=== PATIENT | female | born 1985 | race African-American/Black ===

== ENCOUNTER → 2016-04-18 | Day surgery (SDC) | payer BC ==
[~2016-04-18] VITALS: Ht 152.4 cm; Wt 47.6 kg
[~2016-04-18] MED LIST: ACETAMINOPHEN 1000 MG/100 ML VIAL IV ONE; INSULIN HUMAN REGULAR 1,000 UNITS/10 ML VIAL SQ PRN; LACTATED RINGER'S 1000 ML IV SCH; METOCLOPRAMIDE HCL 10 MG/2 ML VIAL IVS PRN; METOPROLOL TARTRATE 25 MG TAB PO PRN; ONDANSETRON HCL 4 MG/2 ML VIAL IV PRN; PREN29TA PO; Post-op Orders (for Pharmacy) MISC XX ONE; SODIUM CHLORID 0.9% 500 ML IV SCH; SODIUM CHLORIDE 0.9% FLUSH 5 ML FLUSH IVF PRN; SODIUM CHLORIDE 0.9% FLUSH 5 ML FLUSH IVF SCH; ceFAZolin 2 GM PREMIX 50 ML IV SCH; ceFAZolin INJ 1,000 MG VIAL ONE; ePHEDrine/NS 25 MG/5 ML SYR IV ONE; oxyCODONE/ACETAMINOPHEN 5 MG/325 MG TAB PO PRN
[2016-04-18 09:09] VITALS: BP 115/70; PULSE 86; RESP 20; TEMP 98.2; O2SAT 100
[2016-04-18 09:44] LABS: AUTOMATED NEUTROPHIL # 4.2 TH/MM3 (1.8-7.7); BASOPHIL % 0.4 % (0.0-2.0); EOSINOPHIL % 0.7 % (0.0-4.0); HEMATOCRIT 31.3 % (35.0-46.0); HEMO FLAGS DIFF FINAL; MEAN CELL VOLUME 80.2 FL (80.0-100.0); MEAN CORPUSCULAR HEMOGLOBIN 27.6 PG (27.0-34.0); MEAN CORPUSCULAR HGB CONC 34.4 % (32.0-36.0); MONO % 7.3 % (0.0-8.0); NEUT % 73.6 % (16.0-70.0); PLATELET COUNT 146 TH/MM3 (150-450); RED BLOOD COUNT 3.91 MIL/MM3 (4.00-5.30); RED CELL DISTRIBUTION WIDTH 14.3 % (11.6-17.2); WHITE BLOOD COUNT 5.7 TH/MM3 (4.0-11.0)
--- NOTE | 2016-04-18 09:54 | MH ---
cc: DOUGLAS SANDERS DATE OF ADMISSION: 04/18/2016 HISTORY OF PRESENT ILLNESS The patient is a 30-year-old 3, para 0-1-1-1 who presents at 14 weeks gestation with an GABINO of 10/16/2016. The patient has a that is history complicated by one first trimester miscarriage and with her second she had incompetent cervix at 22 weeks, premature rupture of membranes at 23 weeks and at 25 weeks the patient had cord prolapse that led to emergency . The patient presents today for prophylactic cerclage given her history of incompetent cervix with the past pregnancies. PAST MEDICAL HISTORY Negative. PAST SURGICAL HISTORY Significant for - 1. Emergency . 2. Breast augmentation. OB HISTORY As previously dictated. One miscarriage, one 25-week delivery. 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 Menstrual cycles are regular between pregnancies. SOCIAL HISTORY Negative for alcohol, tobacco or street drugs. SOCIAL HISTORY The patient is and works as an accounting practice manager. ALLERGIES None. FAMILY HISTORY Her mother with high cholesterol. PHYSICAL EXAMINATION VITAL SIGNS: She is afebrile. Her vitals are stable. Her blood pressure is 104/62, her weight is 104. GENERAL: She is in no acute distress. HEART: Regular rate and rhythm. LUNGS: Clear to auscultation bilaterally. ABDOMEN: Gravid, soft, non-tender, non-distended. LOWER EXTREMITIES: Nontender, nonedematous. IMPRESSION History of cervical incompetence. PLAN Ribeiro cervical cerclage. The risks, benefits and alternatives have been reviewed. The patient does desire to proceed. Douglas Sanders MD TEG/SSB /10:32 PM /9:18 AM KARTHIK
--- NOTE | 2016-04-18 11:36 | PD.OP ---
Operative Report Date of Surgery: Apr 18, 2016 Preoperative Diagnosis: (1) Cervical incompetence Postoperative Diagnosis: (1) Cervical incompetence Procedure: Keenan cervical cerclage Anesthesia: spinal Surgeon: Douglas Pennington MD Cardiac Care Nurse(s): none Operation and Findings: After informed consent was obtained she was taken to the operating room, given spinal anesthesia and then placed in the dorsolithotomy position with her legs in the candy cane stirrups. A weighted speculum was inserted in to the vagina. The anterior lip of the cervix was grasped using a ring forcep. The 5mm mersilene tape suture was started at 12 o clock and then passed to 4 o clock, then to 8 o clock and finally back to 12 and tied. The suture was tagged with prolene. All instruments were removed from the patient's vagina. She was awakened and extubated and taken to the recovery room in stable condition. Douglas Pennington MD Apr 18, 2016 11:36
[2016-04-18 14:35] VITALS: BP 113/69; PULSE 95; RESP 16; TEMP 98.9; O2SAT 100
== END | disposition home or self-care (01) ==
LOC: HSDC 08:16
PROVIDERS: ATTEND Obstetrics & Gynecology
DX: O34.32 Maternal care for cervical incompetence, second trimester (principal); Z3A.14 14 weeks gestation of pregnancy
CPT/HCPCS: 00948; 59320; 85025; 86850; 86900; 86901; J0690; J2405; J7120; J0131; J3010

== ENCOUNTER → 2016-05-03 | Outpatient (CLI) | payer BC ==
[~2016-05-03] MED LIST changes: -ACETAMINOPHEN 1000 MG/100 ML VIAL IV ONE; -INSULIN HUMAN REGULAR 1,000 UNITS/10 ML VIAL SQ PRN; -LACTATED RINGER'S 1000 ML IV SCH; -METOCLOPRAMIDE HCL 10 MG/2 ML VIAL IVS PRN; -METOPROLOL TARTRATE 25 MG TAB PO PRN; -ONDANSETRON HCL 4 MG/2 ML VIAL IV PRN; -Post-op Orders (for Pharmacy) MISC XX ONE; -SODIUM CHLORID 0.9% 500 ML IV SCH; -SODIUM CHLORIDE 0.9% FLUSH 5 ML FLUSH IVF PRN; -SODIUM CHLORIDE 0.9% FLUSH 5 ML FLUSH IVF SCH; -ceFAZolin 2 GM PREMIX 50 ML IV SCH; -ceFAZolin INJ 1,000 MG VIAL ONE; -ePHEDrine/NS 25 MG/5 ML SYR IV ONE; -oxyCODONE/ACETAMINOPHEN 5 MG/325 MG TAB PO PRN
== END ==
LOC: HPND 08:14
PROVIDERS: ATTEND Obstetrics & Gynecology
DX: O34.32 Maternal care for cervical incompetence, second trimester (principal); N88.3 Incompetence of cervix uteri; Z87.51 Personal history of pre-term labor
CPT/HCPCS: 76805; 76817

== ENCOUNTER → 2016-05-16 | Outpatient (CLI) | payer BC | LOC: HPND 08:00 | PROVIDERS: ATTEND Obstetrics & Gynecology | DX: O34.32 Maternal care for cervical incompetence, second trimester (principal); Z87.51 Personal history of pre-term labor; Z3A.00 Weeks of gestation of pregnancy not specified | CPT/HCPCS: 76815; 76817 ==

== ENCOUNTER 2016-10-07 11:30 | Inpatient (IN) | payer BC, OTHER ==
[~2016-10-07] VITALS: Ht 152.4 cm; Wt 60.3 kg
--- NOTE | 2016-10-09 19:01 | MH ---
cc: GONSALO SANDERS DATE OF ADMISSION: 10/10/2016 HISTORY OF PRESENT ILLNESS: The patient is a 30-year-old 3, para 0-1-1-1 who presents at 39+ weeks gestation for an elective repeat section. This has been complicated by a history of pre-term labor and pre-term rupture of membranes with her prior and thus the patient has received Richey injections from approximately 16 weeks until approximately 36 weeks and the patient also had a cerclage placed at approximately 14 weeks gestation. PAST MEDICAL HISTORY: Her past medical history is negative. PAST SURGICAL HISTORY: Her past surgical history is significant for: 1. section. 2. Gallaway teeth extraction. 3. Breast augmentation. OBSTETRICAL HISTORY: She has had one 25-week delivery by secondary to cord prolapse. She has also had one first trimester miscarriage but did not require a D&C. GYNECOLOGIC HISTORY: No history of STDs or abnormal Pap smears. SOCIAL HISTORY: Social history is negative for cigarettes, alcohol or street drugs. The patient is and works as an accounting recruiter. FAMILY HISTORY: Her mother has high cholesterol. PHYSICAL EXAMINATION: VITAL SIGNS: She is afebrile. Her blood pressure is 112/60. GENERAL: In general, she is in no acute distress. HEART: Regular rate and rhythm. LUNGS: Clear to auscultation bilaterally. ABDOMEN: The abdomen is gravid and nontender. LOWER EXTREMITIES: Nontender, nonedematous. IMPRESSION: 1. at 39+ weeks gestation. 2. History of prior section. PLAN: Plan is for a repeat low transverse delivery. The risks, benefits, and alternatives have been reviewed and the patient does desire to proceed. MD FELIPE Roque/[facility] /6:10 PM /6:52 PM
[2016-10-10] VITALS (12 sets, daily range): BP systolic 96–120; BP diastolic 51–77; PULSE 66–97; RESP 18–20; TEMP 97.5–98.8; O2SAT 97–100
[2016-10-10] MEDS ORDERED: MORPHINE SULFATE PF 5 MG/10 ML VIAL ONE (09:16)
[2016-10-10] MEDS ORDERED: ONDANSETRON HCL 4 MG/2 ML VIAL ONE (09:17)
[2016-10-10 09:25] LABS: AUTOMATED NEUTROPHIL # 3.6 TH/MM3 (1.8-7.7); BASOPHIL % 0.4 % (0.0-2.0); EOSINOPHIL % 0.9 % (0.0-4.0); HEMATOCRIT 32.6 % (35.0-46.0); HEMO FLAGS DIFF FINAL; LYMPH % 20.7 % (9.0-44.0); MEAN CORPUSCULAR HEMOGLOBIN 27.5 PG (27.0-34.0); MEAN CORPUSCULAR HGB CONC 33.9 % (32.0-36.0); MONO % 7.6 % (0.0-8.0); NEUT % 70.4 % (16.0-70.0); PLATELET COUNT 138 TH/MM3 (150-450); RED BLOOD COUNT 4.03 MIL/MM3 (4.00-5.30); RED CELL DISTRIBUTION WIDTH 15.1 % (11.6-17.2)
[2016-10-10 09:36] LABS: BACTERIA, URINE RARE /hpf; BLOOD, URINE NEG (NEG); GLUCOSE,URINE NEG (NEG); KETONE, URINE NEG (NEG); NITRITE,URINE NEG (NEG); SQUAMOUS EPITHELIAL CELL URINE 12 /hpf (0-5); URINE COLOR YELLOW (YELLW/STRAW)
[2016-10-10 09:37] LABS: COMMENT (UR) CULT NOT INDICATED; CULTURE IF INDICATED CULT NOT INDICATED
[2016-10-10] MEDS ORDERED: CITRIC ACID-SODIUM CITRATE LIQ 30 ML UDC ONE (09:51)
[2016-10-10] MEDS: LACTATED RINGER'S 1000 ML IV SCH ×2 (09:53→16:25)
[2016-10-10] MEDS ORDERED: ceFAZolin 2 GM PREMIX 50 ML IV SCH (10:00)
[2016-10-10] MEDS ORDERED: CITRIC ACID-SODIUM CITRATE LIQ 30 ML UDC PO SCH (10:00)
[2016-10-10] MEDS ORDERED: LACTATED RINGER'S 1000 ML IV ONE (10:00)
[2016-10-10] MEDS ORDERED: ACETAMINOPHEN 1000 MG/100 ML VIAL IV ONE ×2 (11:30→11:49)
[2016-10-10] MEDS ORDERED: OXYTOCIN 10 UNIT/ML AMP XX PRN (11:30)
[2016-10-10] MEDS ORDERED: oxyCODONE/ACETAMINOPHEN 5 MG/325 MG TAB PO PRN (11:30)
[2016-10-10] MEDS ORDERED: KETOROLAC TROMETHAMINE 60 MG/2 ML (IM) VIAL IM PRN (11:30)
[2016-10-10] MEDS ORDERED: OXYTOCIN 30 UNITS-500ML PREMIX 500 ML IV ONE (11:30)
[2016-10-10] MEDS ORDERED: SIMETHICONE 80 MG CHEWABLE TAB PO PRN (11:30)
[2016-10-10] MEDS ORDERED: OXYTOCIN 10 UNIT/ML AMP XX ONE (11:30)
[2016-10-10] MEDS ORDERED: ONDANSETRON HCL 4 MG/2 ML VIAL IV PUSH PRN (11:30)
[2016-10-10] MEDS ORDERED: SODIUM CHLORIDE 0.9% FLUSH 10 ML FLUSH IV FLUSH PRN (11:30)
[2016-10-10] MEDS ORDERED: OXYTOCIN 30 UNITS-500ML PREMIX 500 ML ONE (11:49)
--- NOTE | 2016-10-10 15:05 | PD.CONS ---
HPI Service CV Consult Requested By Dr. Pennington Reason for Consult a-fib Primary Care Physician No Primary Care Physician History of Present Illness Here s/p who was paced in heart monitor post which showed atrial fibrillation. She has no history of this. She has no thyroid disease. She does no smoke. She does not have caffeine in her diet. She denies chest pain , shortness of breath or palpitations (Micky Back) Review of Systems Consitutional: DENIES: Fatigue, Fever, Chills, Weight gain, Weight loss Eyes: DENIES: Amaurosis Fugax, Change in vision HEENT: DENIES: Lightheadedness, Change in hearing Respiratory: DENIES: See HPI, Cough, Snoring, Shortness of breath, Wheezing, Sputum production Cardiovascular: DENIES: See HPI, Chest pain, Palpitations, Syncope, Tachycardia Gastrointestinal: DENIES: Nausea, Vomiting, Change in bowel habits, Reflux, Bloody stools, Melena Genitourinary: DENIES: Urinary incontinence, Difficulty voiding Integumentary: DENIES: Rash Neurologic: DENIES: Tingling or numbness, Memory problems, Poor Balance, Stroke symptoms Musculoskeletal: DENIES: Joint pain, Muscle pain, Limited range of motion, Back pain Psychiatric: DENIES: Anxiety, Depression, Sleep disturbances Hematologic: DENIES: Bruising tendencies, Bleeding tendencies Endocrine: DENIES: Weight gain, Weight loss, Thyroid disease (Micky Back ) Past Family Social History Allergies: Coded Allergies: No Known Allergies (Unverified , 10/10/16) Past Medical History s/p Reported Medications Reported Meds & Active Scripts Active Reported Plus Iron 29-1 mg ( Vit-Iron Carbonyl) 1 Tab Tab 1 Tab PO DAILY Active Ordered Medications Current Medications Medications (Trade) Dose Ordered Sig/Howard Route Start Time Stop Time Status Last Admin Lactated Ringer's 1,000 ml @ 150 mls/hr Q6H40M IV 10/10/16 10:30 10/10/16 09:53 Lactated Ringer's 1,000 ml @ 100 mls/hr Q10H IV 10/10/16 16:18 10/11/16 12:17 (Pitocin 30 Units-NS 500 ml Premix) 500 ml @ 100 mls/hr ONCE ONCE IV 10/10/16 11:30 10/10/16 16:29 10/10/16 11:58 (NS Flush) 2 ml BID IV FLUSH 10/10/16 21:00 (NS Flush) 2 ml UNSCH PRN IV FLUSH 10/10/16 11:30 (Mylicon Chew) 80 mg QID PRN PO 10/10/16 11:30 (Motrin) 600 mg Q6H PRN PO 10/10/16 11:30 (Toradol Inj) 30 mg Q6H PRN IM 10/10/16 11:30 10/11/16 11:29 (Percocet 5-325 Mg) 1 tab Q4H PRN PO 10/10/16 11:30 Oxycodone/ Acetaminophen 2 tab 2 tab Q4H PRN PO 10/10/16 11:30 (Ancef Inj/NS Inj) 100 ml @ 200 mls/hr Q8H IV 10/10/16 18:00 10/11/16 02:29 (Krystle-Colace) 2 tab Q12H PRN PO 10/10/16 11:30 (Ambien) 5 mg HS PRN PO 10/10/16 21:00 (M-M-R Ii Inj) 0.5 ml ONCE ONCE SQ 10/11/16 16:00 10/11/16 16:01 (Boostrix Inj) 0.5 ml ONCE ONCE IM 10/11/16 16:00 10/11/16 16:01 (Zofran Inj) 4 mg Q6H PRN IV PUSH 10/10/16 11:30 Family History noncontributory Social History denies smoking, alcohol, or substance abuse (Micky Back) Physical Exam Vital Signs Vital Signs Date Time Temp Pulse Resp B/P Pulse Ox O2 Delivery O2 Flow Rate FiO2 10/10/16 12:46 97.6 74 18 10/10/16 12:46 112/77 10/10/16 12:15 83 119/63 10/10/16 12:15 18 99 10/10/16 12:05 97.5 10/10/16 12:00 89 18 118/55 98 10/10/16 11:42 96/51 10/10/16 11:39 97 10/10/16 11:39 87 18 10/10/16 11:31 100 10/10/16 11:22 97.8 10/10/16 11:22 97 18 109/57 Physical Exam GENERAL: Well-nourished, well-developed patient in no apparent distress. NECK: No JVD. No carotid bruit. CARDIOVASCULAR: IR IR. S1/S2 no murmur, rub, or gallop. RESPIRATORY: No accessory muscle use. Clear to auscultation. Breath sounds equal bilaterally. GASTROINTESTINAL: Abdomen soft, non-tender, nondistended. MUSCULOSKELETAL: Extremities without clubbing, cyanosis, or edema. Laboratory Laboratory Tests Test 10/10/16 10/10/16 10/10/16 08:30 08:40 08:42 Urine Color YELLOW Urine Turbidity HAZY Urine pH 6.0 Urine Specific [place] 1.012 Urine Protein NEG Urine Glucose (UA) NEG Urine Ketones NEG Urine Occult Blood NEG Urine Nitrite NEG Urine Bilirubin NEG Urine Urobilinogen LESS THAN 2.0 Urine Leukocyte Esterase LARGE Urine RBC 1 Urine WBC 6 Urine Squamous Epithelial 12 Cells Urine Bacteria RARE Microscopic Urinalysis Comment CULT NOT INDICATED Blood Type AB POSITIVE Antibody Screen NEGATIVE White Blood Count 5.0 Red Blood Count 4.03 Hemoglobin 11.0 Hematocrit 32.6 Mean Corpuscular Volume 81.0 Mean Corpuscular Hemoglobin 27.5 Mean Corpuscular Hemoglobin 33.9 Concent Red Cell Distribution Width 15.1 Platelet Count 138 Mean Platelet Volume 7.7 Neutrophils (%) (Auto) 70.4 Lymphocytes (%) (Auto) 20.7 Monocytes (%) (Auto) 7.6 Eosinophils (%) (Auto) 0.9 Basophils (%) (Auto) 0.4 Neutrophils # (Auto) 3.6 Lymphocytes # (Auto) 1.0 Monocytes # (Auto) 0.4 Eosinophils # (Auto) 0.0 Basophils # (Auto) 0.0 CBC Comment DIFF FINAL Differential Comment (Micky Back) Result Diagram: 10/10/16 0842 Assessment and Plan Problem List: (1) A-fib Assessment and Plan A-fib - get 2D echo, check TSH, and start telemetry. Further recommendations will depend on the echo results (Micky Back) Assessment and Plan -------- regular rhythm now i suspect she spontaneously converted. likely afib due to increased adrenergic tone related to delivery. FU 2d echo FU tele FU TSH if no further afib, no cardiac meds considering she prefers to try to breast feed. thanks (Sriram Lam MD) Micky Back Oct 10, 2016 15:05 Sriram Lam MD Oct 10, 2016 15:13
[2016-10-10] MEDS: LACTATED RINGER'S 1000 ML INJ 1,000 ML IV SCH ×2 (16:18→23:30)
--- NOTE | 2016-10-10 16:22 | EKG ---
Date Performed: 10/10/2016 Time Performed: 11:50:33 PTAGE: 30 years EKG: ATRIAL FIBRILLATION POSSIBLE RIGHT VENTRICULAR CONDUCTION DELAY VOLTAGE CRITERIA FOR LVH AB NORMAL ECG NO PREVIOUS TRACING DOCTOR: Lambert Muro Interpretating Date/Time 10/10/2016 16:19:47
[2016-10-10] MEDS ORDERED: ZOLPIDEM TARTRATE 5 MG TAB PO PRN (21:00)
[2016-10-10] MEDS ORDERED: OXYTOCIN 30 UNITS-500ML PREMIX 500 ML IV PRN (21:30)
[2016-10-10] MEDS: IBUPROFEN 600 MG TAB PO PRN (22:29)
[2016-10-10] MEDS: oxyCODONE/ACETAMINOPHEN 5 MG/325 MG TAB PO PRN (22:30)
[2016-10-11] MEDS: oxyCODONE/ACETAMINOPHEN 5 MG/325 MG TAB PO PRN ×7 (00:22→23:16)
[2016-10-11 04:00] VITALS: BP 103/66; PULSE 77; RESP 18; TEMP 98.4
[2016-10-11] MEDS: IBUPROFEN 600 MG TAB PO PRN ×3 (04:28→18:21)
[2016-10-11 06:48] LABS: AUTOMATED NEUTROPHIL # 3.6 TH/MM3 (1.8-7.7); BASOPHIL % 0.2 % (0.0-2.0); EOSINOPHIL % 0.5 % (0.0-4.0); HEMATOCRIT 22.4 % (35.0-46.0); HEMO FLAGS DIFF FINAL; LYMPH % 14.3 % (9.0-44.0); LYMPHOCYTE # 0.7 TH/MM3 (1.0-4.8); MEAN CELL VOLUME 81.1 FL (80.0-100.0); MEAN CORPUSCULAR HEMOGLOBIN 27.3 PG (27.0-34.0); MEAN CORPUSCULAR HGB CONC 33.7 % (32.0-36.0); MONO % 8.7 % (0.0-8.0); NEUT % 76.3 % (16.0-70.0); PLATELET COUNT 107 TH/MM3 (150-450); RED BLOOD COUNT 2.76 MIL/MM3 (4.00-5.30); RED CELL DISTRIBUTION WIDTH 14.8 % (11.6-17.2); WHITE BLOOD COUNT 4.8 TH/MM3 (4.0-11.0)
[2016-10-11 08:20] VITALS: BP 104/69; PULSE 73; RESP 16; TEMP 98.2
--- NOTE | 2016-10-11 11:23 | PD.CARD.PN ---
Subjective Subjective Remarks no events Objective Medications Active Medications Acetaminophen (Ofirmev Inj) 1,000 mg ONCE ONCE IV Last administered on 11:55; Admin Dose 1,000 MG; Start 10/10/16 at 11:30; Stop 10/10/16 at 11:33; Status DC Acetaminophen (Ofirmev Inj) 1,000 mg STK-MED ONCE IV; Start 10/10/16 at 11:49; Stop 10/10/16 at 11:50; Status DC Cefazolin Sodium/ Sodium Chloride (Ancef Inj/NS Inj) 100 ml @ 200 mls/hr Q8H IV Last administered on 10/11/16 02:00; Admin Dose 200 MLS/HR; Start 10/10/16 at 18:00; Stop 10/11/16 at 02:29; Status DC Diphtheria/ Tetanus/Acell Pertussis (Boostrix Inj) 0.5 ml ONCE ONCE IM; Start at 16:00; Stop 10/11/16 at 16:01 Ibuprofen (Motrin) 600 mg Q6H PRN PO Last administered on 10/11/16 04:28; Admin Dose 600 MG; Start 10/10/16 at 11:30 Ketorolac Tromethamine (Toradol Inj) 30 mg Q6H PRN IM Last administered on 16:19; Admin Dose 30 MG; Start 10/10/16 at 11:30; Stop 10/11/16 at 11:29 Lactated Ringer's 1,000 ml @ 100 mls/hr Q10H IV Last administered on 10/10/16 23:30; Admin Dose 100 MLS/HR; Start 10/10/16 at 16:18; Stop 10/11/16 at 12:17 Measles/Mumps/ Rubella Vaccine Live (M-M-R Ii Inj) 0.5 ml ONCE ONCE SQ; Start at 16:00; Stop 10/11/16 at 16:01 Ondansetron HCl 4 mg 4 mg Q6H PRN IV PUSH Last administered on 10/10/16 16:18; Admin Dose 4 MG; Start 10/10/16 at 11:30 Oxycodone/ Acetaminophen (Percocet 5-325 Mg) 1 tab Q4H PRN PO Last administered on 10/11/16 06:54; Admin Dose 1 TAB; Start 10/10/16 at 11:30 Oxycodone/ Acetaminophen 2 tab 2 tab Q4H PRN PO; Start 10/10/16 at 11:30 Oxytocin (Pitocin 30 Units-NS 500 ml Premix) 500 ml @ 100 mls/hr ONCE ONCE IV Last administered on 10/10/16 11:58; Admin Dose 100 MLS/HR; Start 10/10/16 at 11: 30; Stop 10/10/16 at 16:29; Status DC Oxytocin (Pitocin 30 Units-NS 500 ml Premix) 500 ml @ As Directed STK-MED ONCE .ROUTE; Start 10/10/16 at 11:49; Stop 10/10/16 at 11:50; Status DC Oxytocin 20 units 20 units ONCE ONCE XX; Start 10/10/16 at 11:30; Stop 10/10/16 at 11:32; Status DC Senna/Docusate Sodium (Krystle-Colace) 2 tab Q12H PRN PO; Start 10/10/16 at 11:30 Simethicone (Mylicon Chew) 80 mg QID PRN PO; Start 10/10/16 at 11:30 Sodium Chloride (NS Flush) 2 ml BID IV FLUSH; Start 10/10/16 at 21:00 Sodium Chloride (NS Flush) 2 ml UNSCH PRN IV FLUSH; Start 10/10/16 at 11:30 Zolpidem Tartrate (Ambien) 5 mg HS PRN PO; Start 10/10/16 at 21:00 Vital Signs / I&O Vital Signs Date Time Temp Pulse Resp B/P Pulse Ox O2 Delivery O2 Flow Rate FiO2 10/11/16 08:20 98.2 73 16 104/69 10/11/16 04:00 98.4 77 18 10/11/16 04:00 103/66 10/10/16 23:59 98.8 71 18 119/75 10/10/16 22:30 18 10/10/16 20:15 76 20 113/72 10/10/16 20:15 97.9 10/10/16 16:31 66 18 120/75 10/10/16 16:31 97.6 10/10/16 12:46 97.6 74 18 10/10/16 12:46 112/77 10/10/16 12:15 83 119/63 10/10/16 12:15 18 99 10/10/16 12:05 97.5 10/10/16 12:00 89 18 118/55 98 10/10/16 11:42 96/51 10/10/16 11:39 97 10/10/16 11:39 87 18 10/10/16 11:31 100 Physical Exam GENERAL: SKIN: Warm and dry. HEAD: Normocephalic. EYES: No scleral icterus. No injection or drainage. NECK: Supple, trachea midline. No JVD or lymphadenopathy. CARDIOVASCULAR: Regular rate and rhythm without murmurs, gallops, or rubs. RESPIRATORY: Breath sounds equal bilaterally. No accessory muscle use. GASTROINTESTINAL: Abdomen soft, non-tender, nondistended. MUSCULOSKELETAL: No cyanosis, or edema. BACK: Nontender without obvious deformity. No CVA tenderness. Laboratory Laboratory Tests Test 10/10/16 10/11/16 16:40 06:19 Thyroid Stimulating Hormone 1.940 uIU/ML 3rd Gen White Blood Count 4.8 TH/MM3 Red Blood Count 2.76 MIL/MM3 Hemoglobin 7.5 GM/DL Hematocrit 22.4 % Mean Corpuscular Volume 81.1 FL Mean Corpuscular Hemoglobin 27.3 PG Mean Corpuscular Hemoglobin 33.7 % Concent Red Cell Distribution Width 14.8 % Platelet Count 107 TH/MM3 Mean Platelet Volume 7.6 FL Neutrophils (%) (Auto) 76.3 % Lymphocytes (%) (Auto) 14.3 % Monocytes (%) (Auto) 8.7 % Eosinophils (%) (Auto) 0.5 % Basophils (%) (Auto) 0.2 % Neutrophils # (Auto) 3.6 TH/MM3 Lymphocytes # (Auto) 0.7 TH/MM3 Monocytes # (Auto) 0.4 TH/MM3 Eosinophils # (Auto) 0.0 TH/MM3 Basophils # (Auto) 0.0 TH/MM3 CBC Comment DIFF FINAL Differential Comment Assessment and Plan Problem List: (1) A-fib Assessment and Plan -------- lone afib - now NSR. cont tele echo done. will read raven. if echo unremarkable, then no further workup and can go home tomorrow and fu with PCP thanks Sriram Lam MD Oct 11, 2016 11:23
[2016-10-11] MEDS: DOCUSATE SODIUM 50 MG/SENNA 8.6 MG TAB PO PRN ×2 (11:24→23:16)
[2016-10-11 11:25] VITALS: BP 109/72; PULSE 74; RESP 18; TEMP 98.1
--- NOTE | 2016-10-11 12:40 | HHI.OB ---
Subjective Post Operative Day: 1 Remarks pain controlled, mod lochia, lucero po, +void/flatus, denies SOB/CP Objective Vitals/I&O Vital Signs Date Time Temp Pulse Resp B/P Pulse Ox O2 Delivery O2 Flow Rate FiO2 10/11/16 08:20 98.2 73 16 104/69 10/11/16 04:00 98.4 77 18 10/11/16 04:00 103/66 10/10/16 23:59 98.8 71 18 119/75 10/10/16 22:30 18 10/10/16 20:15 76 20 113/72 10/10/16 20:15 97.9 10/10/16 16:31 66 18 120/75 10/10/16 16:31 97.6 10/10/16 12:46 97.6 74 18 10/10/16 12:46 112/77 Result Diagram: 10/11/16 0619 Objective Remarks GENERAL: Well-nourished, well-developed patient. CARDIOVASCULAR: Regular rate and rhythm without murmurs, gallops, or rubs. RESPIRATORY: Breath sounds equal bilaterally. No accessory muscle use. ABDOMEN/GI: Abdomen soft, non-tender, bowel sounds present. Incision: Clean, dry and intact. Fundus: Firm, non-tender at umbilicus. GENITOURINARY: Light to moderate bleeding. EXTREMITIES: No cyanosis or edema, non-tender, without signs of DVT. Medications and IVs Current Medications Medications (Trade) Dose Ordered Sig/Hoawrd Route Start Time Stop Time Status Last Admin (Lr 1000 ml Inj) 1,000 ml @ 150 mls/hr Q6H40M IV 10/10/16 10:30 10/10/16 09:53 (NS Flush) 2 ml BID IV FLUSH 10/10/16 21:00 (NS Flush) 2 ml UNSCH PRN IV FLUSH 10/10/16 11:30 (Mylicon Chew) 80 mg QID PRN PO 10/10/16 11:30 (Motrin) 600 mg Q6H PRN PO 10/10/16 11:30 10/11/16 11:25 (Percocet 5-325 Mg) 1 tab Q4H PRN PO 10/10/16 11:30 10/11/16 11:24 (Percocet 5-325 Mg) 2 tab Q4H PRN PO 10/10/16 11:30 (Krystle-Colace) 2 tab Q12H PRN PO 10/10/16 11:30 10/11/16 11:24 (Ambien) 5 mg HS PRN PO 10/10/16 21:00 (M-M-R Ii Inj) 0.5 ml ONCE ONCE SQ 10/11/16 16:00 10/11/16 16:01 (Boostrix Inj) 0.5 ml ONCE ONCE IM 10/11/16 16:00 10/11/16 16:01 (Zofran Inj) 4 mg Q6H PRN IV PUSH 10/10/16 11:30 10/10/16 16:18 Assessment/Plan Problem List: (1) delivery, delivered, current hospitalization Plan: d/c dressing routine po care (2) A-fib Plan: appreciate cardio consult await echo results now RANDYR. Douglas Pennington MD Oct 11, 2016 12:40
--- NOTE | 2016-10-11 12:43 | ECHRPT ---
Indication: ATRIAL FIB AND FLUTTER CONCLUSIONS BP: 103 / 66 HR: 77 Rhythm: Sinus MEASUREMENTS (Male / Female) Normal Values Technical Quality:Good 2D ECHO LV Diastolic Diameter PLAX 5.0 cm 4.2 - 5.9 / 3.9 - 5.3 cm LV Systolic Diameter PLAX 3.4 cm IVS Diastolic Thickness 0.7 cm 0.6 - 1.0 / 0.6 - 0.9 cm LVPW Diastolic Thickness 0.7 cm 0.6 - 1.0 / 0.6 - 0.9 cm LV Relative Wall Thickness 0.3 LVOT Diameter 1.9 cm Aortic Root Diameter 2.6 cm LA Systolic Diameter LX 3.0 cm 3.0 - 4.0 / 2.7 - 3.8 cm M-MODE AV Cusp Separation MM 1.8 cm DOPPLER AV Peak Velocity 163.0 cm/s AV Peak Gradient 10.6 mmHg AV Mean Gradient 6.0 mmHg AV Velocity Time Integral 30.5 cm LVOT Peak Velocity 141.0 cm/s LVOT Peak Gradient 8.0 mmHg LVOT Velocity Time Integral 26.3 cm LVOT Cardiac Index 3557.7 cm/minm AV Area Cont Eq vti 2.4 cm AV Area Cont Eq pk 2.5 cm Mitral E Point Velocity 86.6 cm/s Mitral A Point Velocity 81.2 cm/s Mitral E to A Ratio 1.1 LV E' Lateral Velocity 20.8 cm/s Mitral E to LV E' Lateral Ratio 4.2 LV E' Septal Velocity 11.9 cm/s Mitral E to LV E' Septal Ratio 7.3 TR Peak Velocity 305.0 cm/s TR Peak Gradient 37.2 mmHg PV Peak Velocity 59.3 cm/s PV Peak Gradient 1.4 mmHg FINDINGS LEFT VENTRICLE Normal left ventricular size. Wall thickness is normal. The left ventricular systolic function is hyperdynamic with an estimated ejection fraction in the ra nge of 65- 70%. No regional wall motion abnormalities are present. Left ventricular diastolic function parameters are normal. RIGHT VENTRICLE Normal right ventricular size and systolic function. LEFT ATRIUM The left atrial size is normal. RIGHT ATRIUM The right atrial size is normal. ATRIAL SEPTUM The interatrial septum not well visualized. A possible atrial level shunt is demonstrated by color flow Doppler interrogation (benign) AORTA The aortic root and proximal ascending aorta are normal in size on limited imaging. MITRAL VALVE Structurally normal mitral valve. No mitral valve stenosis or regurgitation. AORTIC VALVE Trileaflet aortic valve. No aortic valve stenosis or regurgitation. TRICUSPID VALVE Structurally normal tricuspid valve. No tricuspid valve stenosis or regurgitation. PULMONARY VALVE The pulmonary valve is not well visualized. VESSELS The inferior vena cava is normal in size. PERICARDIUM No pericardial effusion. Sriram Lam MD, FACC (Electronically Signed) Final Date:11 October 2016 12:42
--- NOTE | 2016-10-11 15:45 | EKG ---
Date Performed: 10/10/2016 Time Performed: 17:10:34 PTAGE: 30 years EKG: Sinus rhythm POSSIBLE RIGHT VENTRICULAR CONDUCTION DELAY MODERATE ST DEPRESSION ABNORMAL ECG PREVIOUS TRACING : 10/10/2016 11.50 DOCTOR: Linda Cervantes Interpretating Date/Time 10/11/2016 15:40:51
[2016-10-11] MEDS ORDERED: MEASLES, MUMPS, RUBELLA VACCINE 0.5 ML VIAL SQ ONE (16:00)
[2016-10-11] MEDS ORDERED: DIPHTH/TETANUS/ACEL PERTUSSIS (BOOSTER) 0.5 ML VIAL/PFS IM ONE (16:00)
[2016-10-11 16:10] VITALS: BP 116/76; PULSE 94; RESP 18; TEMP 98.4
[2016-10-11] MEDS: LACTATED RINGER'S 1000 ML IV SCH (19:50)
[2016-10-11] MEDS: SODIUM CHLORIDE 0.9% FLUSH 10 ML FLUSH IV FLUSH SCH ×2 (20:04→21:00)
[2016-10-11 20:20] VITALS: BP 137/86; PULSE 84; RESP 20; TEMP 98.8
[2016-10-12] MEDS: oxyCODONE/ACETAMINOPHEN 5 MG/325 MG TAB PO PRN ×3 (01:20→10:11)
[2016-10-12] MEDS: IBUPROFEN 600 MG TAB PO PRN ×2 (01:20→10:12)
[2016-10-12] MEDS: LACTATED RINGER'S 1000 ML IV SCH (02:26)
[2016-10-12 05:41] VITALS: BP 110/78; PULSE 87; RESP 18; TEMP 98.3
[2016-10-12 08:00] VITALS: BP 117/89; PULSE 85; RESP 18; TEMP 98.4
[2016-10-12] MEDS ORDERED: IBUP-232 PO (11:15)
[2016-10-12] MEDS ORDERED: OXYC1TAB63 PO (11:15)
--- NOTE | 2016-10-12 11:16 | HHI.DCPOC ---
Discharge Care Plan Diagnosis: (1) delivery, delivered, current hospitalization Your Health Problems Are: delivery Report Symptoms to Your Doctor -Temperature above 100.5 degrees -Redness, of incision or excessive or foul smelling drainage -Unusual pain or calf pain -Increased vaginal bleeding -Painful or difficulty urinating -Feelings of extreme sadness or anxiety after 2 weeks Goals to Promote Your Health * To prevent worsening of your condition and complications * To maintain your health at the optimal level Directions to Meet Your Goals Take your medications as prescribed Follow your dietary instruction Follow activity as directed Ensure plenty of rest for recovery Drink fluids for hydration Keep your appointments as scheduled Take your immunizations and boosters as scheduled If your symptoms worsen call your PCP, if no PCP go to Urgent Care Center or Emergency Room Smoking is Dangerous to Your Health. Avoid second hand smoke Call the 24-hour crisis hotline for domestic abuse at Douglas Pennington MD Oct 12, 2016 11:16
--- NOTE | 2016-10-12 11:23 | HHI.DS ---
Admission Date Oct 10, 2016 at 08:12 Discharge Date: Oct 12, 2016 Admitting Diagnosis Diagnosis: (1) delivery, delivered, current hospitalization Diagnosis: Principal (2) A-fib Diagnosis: Secondary : Repeat Reason: hx of prior with classical uterine incision : Female Hospital Course pt presented for repeat at term. intraop, pt was asymptomatic and an atrial fibrillation rhythm was noted. post op EKG confirmed this, as did telemetry. cardiology was consulted. the patient spontaneously converted back to NSR and remained in MSR until she was discharged. cardio confirmed these things and also performed an echo and cleared the patient for discharge. by pod 2 pt was voiding, passing gas, with good pain control and was stable for d/ c home. Pt Condition on Discharge: Stable Discharge Disposition: Discharge Home Discharge Instructions Diet Instructions: As Tolerated, No Restrictions Additional Diet Instructions: Drink at least 8 - 16 oz bottles of water a day Activities You Can Perform: Shower Only-No Bath Activities to Avoid: Prolonged Standing, Strenuous Activity, Sexual Activity Additional Activity Instruc.: No driving until off pain medications Do not lift anything heavier than your baby in an infant carrier Douglas Pennington MD Oct 12, 2016 11:23
--- NOTE | 2016-10-12 18:14 | MP ---
cc: DOUGLAS SANDERS DATE OF SURGERY 10/10/2016 PREOPERATIVE DIAGNOSIS Intrauterine at term, history of prior , desires elective repeat. POSTOPERATIVE DIAGNOSIS Intrauterine at term, history of prior , desires elective repeat. Runs of a-fib noted throughout the case by anesthesia and delivery of viable female infant. PROCEDURE Repeat low transverse section with lysis of adhesions. SURGEON Douglas Sanders MD ANESTHESIA Spinal. ESTIMATED BLOOD LOSS 600 cc. DRAINS Yung to gravity with clear yellow urine. SPECIMEN Cord blood and placenta to the placenta donation. COUNTS Correct x2. DISPOSITION Stable in the PACU. DESCRIPTION OF PROCEDURE The patient is a 30-year-old female with a history of prior stat for cord prolapse at 25 weeks with a vertical uterine incision noted that she is not a candidate for . Thus, she was consented for repeat section. After informed consent was obtained she is taken to the operating room, given spinal anesthesia. She is prepped and draped for the normal sterile fashion for surgery. Her prior Pfannenstiel skin incision is used, noted to be approximately four to five fingerbreadths above the pubic symphysis. It is still used nonetheless. It is incised in the usual fashion, carried down to the underlying layer of fascia using the scalpel. The fascial incision is extended laterally using Marilee clamps. The Kellys are also used to elevate the fascia and the rectus muscles were dissected off superiorly and inferiorly. Next, a small window was noted near the anterior portion of fascia and rectus muscle. This is entered bluntly and then the peritoneal incision was opened superiorly and inferiorly. There noted to be some adhesions. These were taken down clamping with Marilee Clamps dividing using the Bovie and then suture ligating. Once this was done in the bladder retractor was then inserted. The vesicouterine peritoneum was identified, tented up and entered sharply and then divided. A transverse incision was made on the lower uterine segment to the layer just exposing membranes. These were ruptured for clear fluid. The uterine incision extended laterally digitally. Next, the vertex was delivered atraumatically followed by the remainder of the infant's body. The cord was doubly clamped and cut and the infant was passed off to awaiting nursery team. Cord bloods were obtained. The placenta was removed manually intact with three-vessel cord and sent for placenta donation. Next, before the uterus could be exteriorized were noted to be more adhesions from the anterior abdominal wall to the anterior fundal surface of the uterus. These were doubly clamped using Jose clamps and taken down and suture ligated as well. Once this was done the uterus was then more mobile and was able to be exteriorized. The tubes and ovaries were inspected and appeared to be grossly within normal limits. The uterus was cleared of all clot and debris. The uterine incision was repaired using 1 chromic suture in a running locked fashion. Good hemostasis was noted. The uterus was returned to the abdominal cavity. The gutters were cleared of all clot and debris. Seprafilm was placed over the uterine incision and also along with the anterior surface of the uterus. The rectus muscles were reapproximated using 0 chromic suture. The fascia was reapproximated using 0 Vicryl suture. The subcutaneous fat was irrigated and made hemostatic and the skin was reapproximated using 3-0 Monocryl suture. Steri-Strips were placed along with a pressure dressing. The patient was then taken to the recovery room. It should also be noted incidentally throughout the case that the patient did appear to be in an a-fib pattern. She was completely asymptomatic and stated she had no prior knowledge of irregular heartbeat. An EKG will be obtained afterwards and a cardiology consultation is indicated. Douglas Sanders MD TEG/EO /8:26 PM /5:48 PM KARTHIK
== END 2016-10-12 16:31 | disposition home or self-care (01) | DRG 765 ==
LOC: H2EB 10-10 08:12 → H1EA 10-10 12:30
PROVIDERS: ADMIT Obstetrics & Gynecology; ATTEND Obstetrics & Gynecology
PROC: 10D00Z1 Extraction of Products of Conception, Low, Open Approach (ICD-10-PCS; principal; 2016-10-10)
PROC: 0DNW0ZZ Release Peritoneum, Open Approach (ICD-10-PCS; 2016-10-10)
DX: O34.212 Maternal care for vertical scar from previous cesarean delivery (principal); O99.42 Diseases of the circulatory system complicating childbirth; I48.91 Unspecified atrial fibrillation; O99.89 Other specified diseases and conditions complicating pregnancy, childbirth and the puerperium; N73.6 Female pelvic peritoneal adhesions (postinfective); Z37.0 Single live birth; Z3A.39 39 weeks gestation of pregnancy
CPT/HCPCS: 59025; 81001; 84443; 85025; 86850; 86900; 86901; 90715; 93005; 93306; C1765; J0131; J0690; J1885; J2274; J2405; J2590; J7120